=== PATIENT | female | born 1955 | race Caucasian/White ===

== ENCOUNTER 2021-01-16 13:45 | Outpatient (CLI) | payer OTHER | END 2021-01-16 13:46 | disposition home or self-care (01) | LOC: BICULT 13:45 | PROVIDERS: ATTEND Internal Medicine Gastroenterology | DX: K57.32 Diverticulitis of large intestine without perforation or abscess without bleeding (principal); K58.9 Irritable bowel syndrome, unspecified; E73.9 Lactose intolerance, unspecified; R19.7 Diarrhea, unspecified; Z86.010 Personal history of colon polyps | CPT/HCPCS: 76856; 93976 ==

== ENCOUNTER 2024-04-15 12:59 | Outpatient (CLI) | payer OTHER ==
[2024-04-15 14:46] LABS: #Basophils 0.05 10x3/uL (0.0-0.2); %Basophils 0.6 % (0.0-1.0); %Eosinophils 1.2 % (0.0-10.0); %Lymphocytes 21.4 % (21.0-51.0); %Monocytes 6.9 % (0.0-10.0); %Neutrophils 69.6 % (42.0-75.0); Hematocrit 42.5 % (36.0-47.0); Hemoglobin 14.1 g/dL (12.0-16.0); Mean Corpuscular HGB CONC 33.2 g/dL (32.0-36.0); Mean Corpuscular Hemoglobin 29.2 pg (27.0-31.0); Mean Platelet Volume 9.6 fL (7.4-10.4); Platelet Count 309 10x3/uL (130-400); RBC Distribution Width 12.7 % (11.5-14.5); Red Blood Cell (RBC) Count 4.83 mill/uL (4.20-5.40)
[2024-04-15 14:57] LABS: Bacteria/HPF None Seen HPF (None Seen); Bilirubin Negative (Negative); Blood, Urine Negative (Negative); Clarity Clear (Clear); Glucose, Urine (Dipstick) Normal (Negative); Ketone, Urine Negative (Negative); Leukocyte Negative Leu/uL (Negative); Nitrite Negative (Negative); Protein, Urine (Dipstick) Negative (Neg-Trace); RBC/HPF 0-3 HPF (0-3); Specific Gravity, Urine 1.009 (1.002-1.036); Squamous Epithelial 0-3 HPF (0-3); Urobilinogen Normal mg/dL (Less than 2); WBC/HPF 0-3 HPF (0-3)
[2024-04-15 15:02] LABS: Prothrombin Time 12.9 sec (12.0-14.7)
[2024-04-15 15:04] LABS: Anion Gap 13 mmol/L (10-20); BUN (Urea Nitrogen) 17 mg/dL (9.8-20.1); Calc. Creatinine Clearance 0 mL/min (70-130); Calcium 9.9 mg/dL (7.8-10.44); Carbon Dioxide 27 mmol/L (23-31); Chloride 103 mmol/L (98-107); Estimated GFR 92; Glucose 97 mg/dL (80-115); Potassium 3.8 mmol/L (3.5-5.1); Sodium 139 mmol/L (136-145)
== END 2024-04-15 13:00 | disposition home or self-care (01) ==
LOC: LABBT 12:59
PROVIDERS: ATTEND Orthopaedic Surgery
DX: Z01.818 Encounter for other preprocedural examination (principal); M17.12 Unilateral primary osteoarthritis, left knee
CPT/HCPCS: 71046; 80048; 81001; 85025; 85610; 87081

== ENCOUNTER 2024-04-15 14:09 | Outpatient (CLI) | payer OTHER | END 2024-04-15 14:10 | disposition home or self-care (01) | LOC: CT 14:09 | PROVIDERS: ATTEND Orthopaedic Surgery | DX: M17.12 Unilateral primary osteoarthritis, left knee (principal); K57.30 Diverticulosis of large intestine without perforation or abscess without bleeding; M25.462 Effusion, left knee | CPT/HCPCS: 71046; 80048; 81001; 85025; 85610; 87081; 93005; 93010 ==

== ENCOUNTER 2024-04-20 05:47 | Observation (INO) | payer OTHER ==
[2024-04-15 13:23] VITALS: BMI 31.9
[2024-04-20] MEDS ORDERED: Lidocaine 1% MPF 2 ML VIAL ONE (05:52)
[2024-04-20] MEDS ORDERED: Tranexamic Acid 1,000 MG/10 ML VIAL ONE ×2 (05:52→09:01)
[2024-04-20] MEDS ORDERED: Vancomycin (BATCH) 300 ML ONE (05:53)
[2024-04-20] MEDS ORDERED: Sodium Chloride 0.9% 100 ML ONE (05:53)
[2024-04-20] MEDS ORDERED: CEFAZOLIN 2 GM VIAL ONE (05:53)
[2024-04-20] MEDS ORDERED: Midazolam HCl 2 mg/2 ml Vial ONE ×2 (06:26→06:29)
[2024-04-20] MEDS ORDERED: fentaNYL PF 100 MCG/2 ML SYRINGE ONE (06:26)
[2024-04-20] MEDS ORDERED: PROPOFOL 20 ML ONE ×2 (06:26→07:43)
[2024-04-20] MEDS ORDERED: Lidocaine 1% PF 5 ML VIAL ONE (06:28)
[2024-04-20] MEDS ORDERED: Bupivacaine 0.25% HCL 30 ML VIAL ONE ×2 (06:30→09:32)
[2024-04-20] MEDS ORDERED: Bupivacaine PF 0.5% 30 ML VIAL ONE (06:30)
[2024-04-20] MEDS ORDERED: Ondansetron PF 4 MG/2 ML Vial ONE (06:31)
[2024-04-20] MEDS ORDERED: Lidocaine 2% 6 ML (Jelly) SYR ONE (06:31)
[2024-04-20] MEDS ORDERED: Dexamethasone 20 MG/5 ML VIAL ONE (06:31)
[2024-04-20] MEDS ORDERED: Bupivacaine HCl 0.5%/Epinephrine 1:200,000/PF 30 ml Vial ONE (06:45)
[2024-04-20] MEDS ORDERED: Promethazine HCl 25 MG/ML VIAL IM PRN ×3 (07:30→09:18)
[2024-04-20] MEDS ORDERED: Ropivacaine 0.2% 550 ML 550 ML NERVE BLCK SCH (07:30)
[2024-04-20] MEDS ORDERED: fentaNYL 50 mcg/mL 1 mL Vial SLOW IVP PRN (07:30)
[2024-04-20] MEDS ORDERED: Zolpidem Tartrate 5 MG TAB PO PRN ×2 (07:30→08:50)
[2024-04-20] MEDS ORDERED: HYDROcodone/Acetaminophen 10/325 mg Tablet PO PRN ×2 (07:30)
[2024-04-20] MEDS ORDERED: Ondansetron PF 4 MG/2 ML Vial IVP PRN ×2 (07:30→08:50)
[2024-04-20] MEDS ORDERED: Metoclopramide HCl 10 MG (2 mL) VIAL ONE (07:37)
[2024-04-20] MEDS ORDERED: Ketorolac Tromethamine 30 MG (1 mL) VIAL ONE (07:37)
[2024-04-20] MEDS ORDERED: diphenhydrAMINE 50 MG/ML VIAL ONE (07:37)
[2024-04-20] MEDS ORDERED: Dexmedetomidine 200 MCG/2 ML VIAL ONE (07:39)
[2024-04-20] MEDS ORDERED: traMADol HCl 50 MG TAB PO PRN (08:50)
[2024-04-20] MEDS ORDERED: Ketorolac Tromethamine 30 MG/ML VIAL IVP PRN (09:18)
[2024-04-20] MEDS ORDERED: HYDROmorphone 2 MG/ML VIAL SLOW IVP PRN (09:18)
[2024-04-20] MEDS ORDERED: Ondansetron HCl/PF 4 MG/2 ML Vial IVP PRN (09:18)
[2024-04-20] MEDS: Aspirin 81 mg Enteric Coated Tablet PO SCH (13:23)
[2024-04-20] MEDS: Multivitamin W/ Minerals 1 TAB PO SCH (13:23)
[2024-04-20] MEDS: Ferrous Gluconate 324 MG TAB PO SCH (13:23)
[2024-04-20] MEDS: Senokot S 8.6-50 MG TAB PO SCH (13:24)
[2024-04-20] MEDS: Ketorolac Tromethamine 30 MG (1 mL) VIAL IVP SCH (13:24)
[2024-04-20] MEDS: Sodium Chloride 0.9% 1,000 ML IV SCH (13:24)
[2024-04-20] MEDS: Tranexamic Acid 1,000 MG in Sodium Chloride 0.9% 100 ML IVPB SCH (13:24)
[2024-04-20] MEDS: CEFAZOLIN 2 GM in Sodium Chloride 0.9% 100 ML IVPB SCH (14:46)
[2024-04-20 16:46] VITALS: BMI 31.9
[2024-04-20] MEDS: Vancomycin 1.5 GM in Sodium Chloride 0.9% 250 ML 300 ML IVPB SCH (17:29)
[2024-04-20] MEDS: diphenhydrAMINE 25 MG CAP PO PRN (22:55)
[2024-04-20] MEDS: Acetaminophen 325 MG TAB PO PRN (22:55)
[2024-04-21 05:06] LABS: Hematocrit 32.1 % (36.0-47.0); Hemoglobin 10.8 g/dL (12.0-16.0); Mean Corpuscular HGB CONC 33.6 g/dL (32.0-36.0); Mean Corpuscular Hemoglobin 30.3 pg (27.0-31.0); Mean Corpuscular Volume 89.9 fL (78.0-98.0); Mean Platelet Volume 9.5 fL (7.4-10.4); Platelet Count 203 10x3/uL (130-400); RBC Distribution Width 12.9 % (11.5-14.5); Red Blood Cell (RBC) Count 3.57 mill/uL (4.20-5.40)
[2024-04-21 15:53] VITALS: BP 123/74; TEMP 98.4
== END 2024-04-21 16:30 | disposition home or self-care (01) ==
LOC: SDC 05:47 → SURG B 13:09
PROVIDERS: ADMIT Orthopaedic Surgery; ATTEND Orthopaedic Surgery
PROC: 0SRD0JZ Replacement of Left Knee Joint with Synthetic Substitute, Open Approach (ICD-10-PCS; principal; 2024-04-20)
PROC: 3E0T3BZ Introduction of Anesthetic Agent into Peripheral Nerves and Plexi, Percutaneous Approach (ICD-10-PCS; 2024-04-20)
DX: M17.0 Bilateral primary osteoarthritis of knee (principal); J45.909 Unspecified asthma, uncomplicated; F41.9 Anxiety disorder, unspecified; Z90.89 Acquired absence of other organs; Z90.49 Acquired absence of other specified parts of digestive tract; Z90.710 Acquired absence of both cervix and uterus; Z91.040 Latex allergy status; Z88.5 Allergy status to narcotic agent; Z88.8 Allergy status to other drugs, medicaments and biological substances; Z79.51 Long term (current) use of inhaled steroids; Z79.899 Other long term (current) drug therapy
CPT/HCPCS: 0055T; 27447; 64448; 36415; 85027; A4306; C1713; C1776; C1889; J0665; J1100; J1200; J1885; J2250; J2405; J2704; J2765; J2795; J3370; J7030; J7050